=== PATIENT | female | born 1975 | race Caucasian/White ===

== ENCOUNTER 2019-09-06 09:56 | Emergency (ER) | payer OTHER ==
[~2019-09-06] VITALS: Ht 157.5 cm; Wt 67.6 kg
[2019-09-06 10:25] LABS: HEMATOCRIT 42.9 % (37.0-47.0); HEMOGLOBIN 14.5 gm/dL (12.0-15.0); MCH 30.9 pg (26.0-34.0); MCHC 33.9 g/dL (28.0-37.0); MCV 91.3 fL (80.0-100.0); MPV 9.2 fl. (7.2-11.1); NUCLEATED RBCS 0 /100WBC; PLATELET COUNT* 285 thou/uL (150-400); RBC 4.69 mil/uL (4.20-5.00); RDW-CV 12.9 % (10.5-14.5); WBC 16.6 thou/uL (4.0-11.0)
[2019-09-06 10:26] LABS: URINE BILIRUBIN NEGATIVE (Negative); URINE BLOOD 1+ (Negative); URINE CLARITY CLEAR; URINE COLOR YELLOW; URINE GLUCOSE-RANDOM NEGATIVE (Negative); URINE KETONES NEGATIVE (Negative); URINE LEUKOCYTES-REFLEX NEGATIVE (Negative); URINE NITRITE-REFLEX NEGATIVE (Negative); URINE PROTEIN NEGATIVE (Negative); URINE SPECIFIC GRAVITY >= 1.030 (1.005-1.030); URINE UROBILINOGEN 0.2 E.U./dl (0.2-1.0)
[2019-09-06 10:33] LABS: SQUAMOUS 0-3 Few /LPF (0-3); URINE WBC-REFLEX 0-5 Rare /HPF (0-5)
[2019-09-06 10:34] LABS: AMORPHOUS URATES Moderate /LPF (None Seen); BACTERIA-REFLEX 1-9 Few /HPF (None Seen); HYALINE CASTS 0-3 Few /LPF (None Seen); MUCUS 4-6 Moderate strn/LPF (None Seen); URINE RBC 3-10 Few /HPF (0-2)
[2019-09-06 10:37] LABS: CALCIUM 8.7 mg/dL (8.5-10.1); CREATININE 0.8 mg/dL (0.6-1.3); POTASSIUM 3.7 mmol/L (3.5-5.1)
[2019-09-06 10:41] LABS: ALBUMIN 4.3 g/dL (3.4-5.0); TOTAL BILIRUBIN 0.3 mg/dL (<0.1-1.0); TOTAL PROTEIN 7.8 g/dL (6.4-8.2)
[2019-09-06 10:47] LABS: ABSOLUTE LYMPHOCYTES 1.8 thou/uL (0.8-5.3); ABSOLUTE MONOCYTES 0.5 thou/uL (0.0-1.2); ABSOLUTE NEUTROPHILS 14.3 thou/uL (1.6-8.1); ANISOCYTOSIS 1+; PLATELET ESTIMATE ADEQUATE; POIKILOCYTOSIS 1+
[2019-09-06] MEDS ORDERED: ZOFRAN4 MG PO (11:16)
[2019-09-06] MEDS ORDERED: BENTYL 20 MG TA20 M1 PO (11:16)
[2019-09-06 11:27] VITALS: BP 97/57
--- NOTE | 2019-09-07 12:15 | EKG ---
[place] [address] ELECTROCARDIOGRAM REPORT Name: ELISEO GALINDOCOJO Mathis Room: [facility]#: [id number] Admission: 09/06/19 Attend Phys: Discharge: 09/06/19 Date of : 77 Date of Service: 09/06/19 1027 Report #: [id number] THIS REPORT FOR: //name// [facility] ED Test Date: 2019-09-06 Test Time: 10:27:01 Pat Name: WILLIAM GALINDO Department: Room: Gender: F Time Study Clerk: SHALOM : 1975 Requested By: Titus May Order Number: [id number] MD: Riley Dick Measurements Intervals [place] Rate: 61 P: 65 IN: 173 QRS: 72 QRSD: 107 T: 63 QT: 413 QTc: 416 Interpretive Statements Sinus rhythm Low voltage, precordial leads No previous ECG available for comparison Electronically Signed On 09-07-2019 12:14:35 [employer] by Riley Dick [email or web address] <ELECTRONICALLY SIGNED> By: Riley Dick MD, [facility] 09/07/19 1214 26 26 Riley Dick MD, [facility] /EPI
== END 2019-09-06 11:27 | disposition home or self-care (01) ==
LOC: M.ERS 09:56
PROVIDERS: Family Medicine; Nurse Practitioner Family
DX: K52.9 Noninfective gastroenteritis and colitis, unspecified (principal); Z98.890 Other specified postprocedural states; Z88.7 Allergy status to serum and vaccine